=== PATIENT | male | born 1950 | race Caucasian/White ===

== ENCOUNTER 2016-08-17 14:57 | Emergency (ER) | payer BC ==
[~2016-08-17 14:57] MED LIST: CENTTAB9 PO; CHOL50006 PO; LEVO125T3 PO; LORTA5 PO
[2016-08-17 15:05] VITALS: BP 150/89; PULSE 83; RESP 18; TEMP 98.6; O2SAT 93
[2016-08-17] MEDS ORDERED: SODIUM CHLORID 0.9% 500 ML INJ 500 ML IV ONE (15:15)
[2016-08-17] MEDS ORDERED: chlordiazePOXIDE 25 MG CAP PO ONE (15:15)
[2016-08-17] MEDS ORDERED: THIAMINE HCL 200 MG/2 ML VIAL IM ONE (15:15)
[2016-08-17] MEDS ORDERED: ONDANSETRON HCL 4 MG/2 ML VIAL IV PUSH ONE (15:15)
[2016-08-17] MEDS ORDERED: PYRIDOSTIGMINE BROMIDE 60 MG TAB PO ONE (15:30)
--- NOTE | 2016-08-17 15:38 | PD ---
HPI Chief Complaint: Laceration/Skin Injury Time Seen by Provider: 15:00 Travel History International Travel<30 days: No Contact w/Intl Traveler<30days: No Traveled to known affect area: No History of Present Illness HPI 65-year-old male brought in under [employer] act with acute intoxication and worrisome for not being able to care for himself at home. Patient is intoxicated on alcohol. Patient states recent diagnosis of myasthenia gravis, and he expresses to me that he is very upset that his daughter wall having to do with him. Patient is noted to have vomitus on his shirt. He denies no specific medical complaints other than a laceration to his left foot. He is unsure how this occurred. EMS reports that his house was in disarray, and they were concerned about his well-being. He has no known drug allergies. PFSH Past Medical History Arthritis: Yes (BILATER HIP SX) Anxiety: Yes Depression: No Heart Rhythm Problems: No Cancer: No Cardiovascular Problems: Yes High Cholesterol: No Chemotherapy: No Chest Pain: No Congestive Heart Failure: No COPD: No Cerebrovascular Accident: No Coronary Artery Disease: Yes Diabetes: No Diminished Hearing: No Endocrine: Yes (HYPOKALEMIA, HYPOMAGNESIUM) Gastrointestinal Disorders: No GERD: No Genitourinary: No Headaches: No Hiatal Hernia: No Hypertension: Yes Implanted Vascular Access Dvce: No Kidney Stones: No Musculoskeletal: Yes Neurologic: No Psychiatric: Yes (ETOH ABUSE) Reproductive: No Respiratory: No Integumentary: Yes (NECROTIZING FASCITIS) Immunizations Current: No Migraines: No Radiation Therapy: No Renal Failure: No Seizures: No Sickle Cell Disease: No Sleep Apnea: Yes Thyroid Disease: Yes (hypo) Ulcer: No Past Surgical History Abdominal Surgery: Yes (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) Arteriovenous Shunt: No Cardiac Surgery: No Cholecystectomy: Yes Ear Surgery: No Endocrine Surgery: No Eye Surgery: No Genitourinary Surgery: No Gynecologic Surgery: No Insulin Pump: No Joint Replacement: Yes (bilateral total hips, R HIP REPLACEMENT 2009 ) Neurologic Surgery: No Oral Surgery: No Thoracic Surgery: No Other Surgery: Yes (bariatric sx, NECROTIZING FASCITIS, MX SKIN GRAFTS) Social History Alcohol Use: Yes (1.5 x 1.75 liter bottles- BINGE DRINKER) Tobacco Use: No Substance Use: No (ALCOHOL ABUSE) Allergies-Medications (Allergen,Severity, Reaction): Coded Allergies: No Known Allergies (Unverified , 03/13/16) Reported Meds & Prescriptions Reported Meds & Active Scripts Active [place] 5-325 mg (Hydrocodone-Acetaminophen 5-325 mg) 1 Tab 1-2 Tab PO Q4H PRN Levothyroxine 125 mcg (Levothyroxine Sodium) 125 Mcg Tab 150 Mcg PO DAILY 30 Days Reported Vitamin D (Cholecalciferol) 5,000 Unit Tab 10,000 Unit PO WEEKLY Centrum (Multivitamins) Tab 1 Tab PO DAILY Review of Systems ROS Limitations: Intoxication Except as stated in HPI: all other systems reviewed are Neg General / Constitutional: No: Fever Eyes: No: Visual changes HENT: No: Headaches Cardiovascular: No: Chest Pain or Discomfort Respiratory: No: Shortness of Breath Gastrointestinal: No: Abdominal Pain Genitourinary: No: Dysuria Musculoskeletal: No: Pain Skin: Positive Lesions (laceration to the left foot.), No Rash Neurologic: No: Weakness Psychiatric: Positive: Depression, Substance Abuse Endocrine: No: Polydipsia Hematologic/Lymphatic: No: Easy Bruising Physical Exam Exam Limitations: Intoxication Narrative GENERAL: Patient appears intoxicated and visibly upset. SKIN: Warm and dry. Normal color. Normal turgor. Patient has 2 superficial lacerations to the left distal sole of foot with no active bleeding. These are clean and not amenable to ensure at this time. No signs of cellulitis is noted. HEAD: Atraumatic. Normocephalic. Normal color. Normal turgor. EYES: Pupils equal and round. No scleral icterus. No injection or drainage. ENT: No nasal bleeding or discharge. Mucous membranes pink and moist. Pharynx is clear. Airway is patent. NECK: Trachea midline. No JVD. Supple nontender. CARDIOVASCULAR: Regular rate and rhythm. RESPIRATORY: No accessory muscle use. Clear to auscultation. Breath sounds equal bilaterally. GASTROINTESTINAL: Abdomen soft, non-tender, nondistended. Hepatic and splenic margins not palpable. MUSCULOSKELETAL: Extremities without clubbing, cyanosis, or edema. No obvious deformities. NEUROLOGICAL: Awake and alert. No obvious cranial nerve deficits. Motor grossly within normal limits. Five out of 5 muscle strength in the arms and legs. Normal speech. PSYCHIATRIC: Mood is labile; insight and judgment normal. Data Data Last Documented VS Vital Signs Date Time Temp Pulse Resp B/P Pulse Ox O2 Delivery O2 Flow Rate FiO2 08/17/16 15:08 83 18 08/17/16 15:05 98.6 150/89 93 Orders Complete Blood Count With Diff (08/17/16 15:10) Comprehensive Metabolic Panel (08/17/16 15:10) Urinalysis - C+S If Indicated (08/17/16 15:10) Psych Screen (08/17/16 15:10) Drug Screen, Random Urine (08/17/16 15:10) Alcohol (Ethanol) (08/17/16 15:10) Thiamine Inj (Thiamine Inj) (08/17/16 15:15) Chlordiazepoxide (Librium) (08/17/16 15:15) Ondansetron Inj (Zofran Inj) (08/17/16 15:15) Sodium Chlorid 0.9% 500 Ml Inj (Ns 500 M (08/17/16 15:15) Pyridostigmine (Mestinon) (08/17/16 15:30) Clindamycin Inj (Cleocin Inj) (08/17/16 18:00) Labs Laboratory Tests Test 08/17/16 08/17/16 15:48 15:58 Urine Color LIGHT-YELLOW Urine Turbidity CLEAR Urine pH 5.0 Urine Specific [place] 1.005 Urine Protein NEG mg/dL Urine Glucose (UA) NEG mg/dL Urine Ketones NEG mg/dL Urine Occult Blood NEG Urine Nitrite NEG Urine Bilirubin NEG Urine Urobilinogen LESS THAN 2.0 MG/DL Urine Leukocyte Esterase NEG Urine WBC LESS THAN 1 /hpf Microscopic Urinalysis Comment CULT NOT INDICATED Urine Opiates Screen NEG Urine Barbiturates Screen NEG Urine Amphetamines Screen NEG Urine Benzodiazepines Screen NEG Urine Cocaine Screen NEG Urine Cannabinoids Screen NEG White Blood Count 6.4 TH/MM3 Red Blood Count 4.64 MIL/MM3 Hemoglobin 14.4 GM/DL Hematocrit 42.0 % Mean Corpuscular Volume 90.5 FL Mean Corpuscular Hemoglobin 30.9 PG Mean Corpuscular Hemoglobin 34.2 % Concent Red Cell Distribution Width 17.4 % Platelet Count 236 TH/MM3 Mean Platelet Volume 7.3 FL Neutrophils (%) (Auto) 56.3 % Lymphocytes (%) (Auto) 35.4 % Monocytes (%) (Auto) 5.6 % Eosinophils (%) (Auto) 2.0 % Basophils (%) (Auto) 0.7 % Neutrophils # (Auto) 3.6 TH/MM3 Lymphocytes # (Auto) 2.3 TH/MM3 Monocytes # (Auto) 0.4 TH/MM3 Eosinophils # (Auto) 0.1 TH/MM3 Basophils # (Auto) 0.0 TH/MM3 CBC Comment DIFF FINAL Differential Comment Sodium Level 141 MEQ/L Potassium Level 4.5 MEQ/L Chloride Level 107 MEQ/L Carbon Dioxide Level 22.9 MEQ/L Anion Gap 11 MEQ/L Blood Urea Nitrogen 15 MG/DL Creatinine 0.89 MG/DL Estimat Glomerular Filtration 86 ML/MIN Rate Random Glucose 99 MG/DL Calcium Level 8.5 MG/DL Total Bilirubin 0.6 MG/DL Aspartate Amino Transf 53 U/L (AST/SGOT) Alanine Aminotransferase 29 U/L (ALT/SGPT) Alkaline Phosphatase 85 U/L Total Protein 6.9 GM/DL Albumin 3.3 GM/DL Ethyl Alcohol Level 288 MG/DL [facility] Medical Decision Making Medical Screen Exam Complete: Yes Emergency Medical Condition: Yes Differential Diagnosis EtOH intoxication. Mood disorder. Depression. Laceration to the left foot. Narrative Course Patient is medically stable at time of exam. Labs ordered including CBC, CMP, urine drug screen, serum EtOH. Patient is given a normal saline bolus of 500 mL. Patient is given Librium 25 mg 1. Patient is given Mestinon 60 mg by mouth 1. Patient is given thiamine 100 mg IM 1 Psych screen is ordered for the patient. Patient is given clindamycin 600 mg IV. CBC is unremarkable. CMP is unremarkable. Urine drug screen is clear. Serum alcohol is 288. Urinalysis is within normal limits. Patient is medically cleared for psychiatric evaluation. Diagnosis Primary Impression: Alcohol abuse Additional Impression: Medical clearance for psychiatric admission Condition: Stable Hieu Reyes Aug 17, 2016 15:38
[2016-08-17 16:14] LABS: AUTOMATED NEUTROPHIL # 3.6 TH/MM3 (1.8-7.7); BASOPHIL % 0.7 % (0.0-2.0); EOSINOPHIL # 0.1 TH/MM3 (0-0.4); HEMO FLAGS DIFF FINAL; LYMPH % 35.4 % (9.0-44.0); LYMPHOCYTE # 2.3 TH/MM3 (1.0-4.8); MEAN CELL VOLUME 90.5 FL (80.0-100.0); MEAN CORPUSCULAR HEMOGLOBIN 30.9 PG (27.0-34.0); MEAN CORPUSCULAR HGB CONC 34.2 % (32.0-36.0); MONO % 5.6 % (0.0-8.0); NEUT % 56.3 % (16.0-70.0); PLATELET COUNT 236 TH/MM3 (150-450); RED BLOOD COUNT 4.64 MIL/MM3 (4.50-5.90); RED CELL DISTRIBUTION WIDTH 17.4 % (11.6-17.2); WHITE BLOOD COUNT 6.4 TH/MM3 (4.0-11.0)
[2016-08-17 16:21] LABS: BLOOD, URINE NEG (NEG); GLUCOSE,URINE NEG (NEG); KETONE, URINE NEG (NEG); NITRITE,URINE NEG (NEG); URINE COLOR LIGHT-YELLOW (YELLW/STRAW)
[2016-08-17 16:27] LABS: AMPHETAMINE, URINE NEG (NEG); BARBITURATES, URINE NEG (NEG); COCAINE, URINE NEG (NEG); COMMENT (UR) CULT NOT INDICATED; CULTURE IF INDICATED CULT NOT INDICATED
[2016-08-17 16:39] LABS: ANION GAP 11 MEQ/L (5-15)
[2016-08-17 16:47] LABS: ALKALINE PHOSPHATASE 85 U/L (45-117); ALT (GPT) 29 U/L (12-78); AST (GOT) 53 U/L (15-37); BICARBONATE 22.9 MEQ/L (21.0-32.0); BLOOD UREA NITROGEN 15 MG/DL (7-18); CHLORIDE 107 MEQ/L (98-107); GLOMERULAR FILTRATION RATE 86 ML/MIN (>89); POTASSIUM 4.5 MEQ/L (3.5-5.1); SODIUM (NA) 141 MEQ/L (136-145); TOTAL BILIRUBIN ADULT 0.6 MG/DL (0.2-1.0)
[2016-08-17] MEDS ORDERED: CLINDAMYCIN INJ 600 MG in SODIUM CHLORIDE 0.9% INJ 100 ML IV ONE (18:00)
[2016-08-17 22:54] VITALS: BP 131/68; PULSE 84; RESP 20; TEMP 98; O2SAT 97
[2016-08-17] MEDS ORDERED: THIA100T PO (23:02)
[2016-08-17] MEDS ORDERED: LEVO175T2 PO (23:02)
[2016-08-17] MEDS ORDERED: VITAINJ IM/SQ (23:07)
[2016-08-17] MEDS ORDERED: MEST60TA PO (23:10)
[2016-08-18 02:17] VITALS: BP 170/93; PULSE 101; RESP 19; O2SAT 95
[2016-08-18 06:11] VITALS: BP 170/85; PULSE 88; RESP 19; O2SAT 98
[2016-08-18] MEDS ORDERED: PRED10 PO (07:35)
[2016-08-18] MEDS ORDERED: PYRIDOSTIGMINE BROMIDE 60 MG TAB PO ONE (07:45)
[2016-08-18] MEDS ORDERED: predniSONE 10 MG TAB PO ONE (07:45)
== END 2016-08-18 10:06 | disposition home or self-care (01) ==
LOC: NEDAMB 14:57 → NEPJ 08-18 10:06
DX: F10.10 Alcohol abuse, uncomplicated (principal); G70.00 Myasthenia gravis without (acute) exacerbation; I25.10 Atherosclerotic heart disease of native coronary artery without angina pectoris; I10 Essential (primary) hypertension
CPT/HCPCS: 80053; 80307; 80320; 81001; 85025; 96372; 96374; 96375; 99284; J2405; J3411; J7040; J7512

== ENCOUNTER 2016-09-02 11:41 | Emergency (ER) | payer BC ==
[~2016-09-02] VITALS: Ht 177.8 cm; Wt 106.8 kg
[2016-09-02 11:41] VITALS: BP 131/80; PULSE 80; PULSE 83; RESP 16; TEMP 97.4; O2SAT 81; O2SAT 97
[~2016-09-02 11:41] MED LIST changes: -LEVO125T3 PO; +LEVO175T2 PO; -LORTA5 PO; +MEST60TA PO; +PRED10 PO; +THIA100T PO; +VITAINJ IM/SQ
--- NOTE | 2016-09-02 11:57 | PD ---
HPI . Alcohol abuse Chief Complaint: Alcohol/Drug Intoxication Time Seen by Provider: 11:46 Travel History International Travel<30 days: No Contact w/Intl Traveler<30days: No Traveled to known affect area: No History of Present Illness HPI Patient presents to us via [facility] being found on the floor of his home. He had reportedly been passed out on the floor for about 7 hours. He states that he called a friend who called EMS who brought him here. He lives alone. He drinks daily. His only complaint is low back pain from lying on the floor for 7 hours. PFSH Past Medical History Arthritis: Yes (BILATER HIP SX) Anxiety: Yes Depression: No Heart Rhythm Problems: No Cancer: No Cardiovascular Problems: Yes High Cholesterol: No Chemotherapy: No Chest Pain: No Congestive Heart Failure: No COPD: No Cerebrovascular Accident: No Coronary Artery Disease: Yes Diabetes: No Diminished Hearing: No Endocrine: Yes (HYPOKALEMIA, HYPOMAGNESIUM) Gastrointestinal Disorders: No GERD: No Genitourinary: No Headaches: No Hiatal Hernia: No Heparin Induced Thrombocytopen: No Hypertension: No Implanted Vascular Access Dvce: No Kidney Stones: No Musculoskeletal: Yes Neurologic: No Psychiatric: Yes (ETOH ABUSE) Reproductive: No Respiratory: No Integumentary: Yes (NECROTIZING FASCITIS) Immunizations Current: No Migraines: No Radiation Therapy: No Renal Failure: No Seizures: No Sickle Cell Disease: No Sleep Apnea: Yes Thyroid Disease: Yes (HYPO) Ulcer: No Past Surgical History Abdominal Surgery: Yes (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) Arteriovenous Shunt: No Cardiac Surgery: No Cholecystectomy: Yes Ear Surgery: No Endocrine Surgery: No Eye Surgery: No Genitourinary Surgery: No Gynecologic Surgery: No Insulin Pump: No Joint Replacement: Yes (RIGHT HIP REPLACEMENT, 2009 ) Neurologic Surgery: No Oral Surgery: No Thoracic Surgery: No Other Surgery: Yes (bariatric sx, NECROTIZING FASCITIS, MX SKIN GRAFTS) Social History Alcohol Use: Yes (1.5 x 1.75 liter bottles- BINGE DRINKER) Tobacco Use: No Substance Use: No (ALCOHOL ABUSE, 20+ YEARS) Allergies-Medications (Allergen,Severity, Reaction): Coded Allergies: No Known Allergies (Unverified , 09/02/16) Reported Meds & Prescriptions Reported Meds & Active Scripts Active Reported Mestinon (Pyridostigmine [place]) 60 Mg Tab 60 Mg PO Q4HR Prednisone 10 Mg Tab 10 Mg PO BID Vitaject Inj (B Complex W/ C Inj) 1 Inj Inj 1 Ml IM/SQ MONTHLY Thiamine (Thiamine HCl) 100 Mg Tab 100 Mg PO DAILY Levothyroxine (Levothyroxine Sodium) 175 Mcg Tab 175 Mcg PO DAILY Review of Systems Except as stated in HPI: all other systems reviewed are Neg Musculoskeletal: Positive: Pain (low back pain) Psychiatric: Positive: Substance Abuse Physical Exam Narrative GENERAL: Disheveled-appearing man who is otherwise in no acute distress. He is lucid. SKIN: Warm and dry. HEAD: Atraumatic. Normocephalic. EYES: Pupils equal and round. Extraocular movements are intact. ENT: No nasal bleeding or discharge. Mucous membranes pink and moist. NECK: Trachea midline. Neck is supple. CARDIOVASCULAR: Regular rate and rhythm. Heart sounds are normal. RESPIRATORY: No accessory muscle use. Lungs are clear with full air movement throughout. GASTROINTESTINAL: Abdomen soft, non-tender, nondistended. MUSCULOSKELETAL: No obvious deformities. No edema. NEUROLOGICAL: Awake and alert. No obvious cranial nerve deficits. Motor grossly within normal limits. Normal speech. PSYCHIATRIC: Appropriate mood and affect; insight and judgment normal. Data Data Last Documented VS Vital Signs Date Time Temp Pulse Resp B/P Pulse Ox O2 Delivery O2 Flow Rate FiO2 09/02/16 11:41 74 16 97 Room Air 09/02/16 11:41 131/80 09/02/16 11:41 97.4 Orders Electrocardiogram (09/02/16 ) Complete Blood Count With Diff (09/02/16 11:51) Comprehensive Metabolic Panel (09/02/16 11:51) Thyroid Stimulating Hormone (09/02/16 11:51) Urinalysis - C+S If Indicated (09/02/16 11:51) Psych Screen (09/02/16 11:51) Lorazepam Inj (Ativan Inj) (09/02/16 12:00) Drug Screen, Random Urine (09/02/16 11:51) Alcohol (Ethanol) (09/02/16 11:51) Sodium Chlor 0.9% 1000 Ml Inj (Ns 1000 M (09/02/16 12:00) Creatine Kinase (Cpk) (09/02/16 11:51) Labs Laboratory Tests Test 09/02/16 09/02/16 12:05 12:37 White Blood Count 8.4 TH/MM3 Red Blood Count 4.67 MIL/MM3 Hemoglobin 14.3 GM/DL Hematocrit 42.2 % Mean Corpuscular Volume 90.3 FL Mean Corpuscular Hemoglobin 30.5 PG Mean Corpuscular Hemoglobin 33.8 % Concent Red Cell Distribution Width 16.1 % Platelet Count 186 TH/MM3 Mean Platelet Volume 7.4 FL Neutrophils (%) (Auto) 88.3 % Lymphocytes (%) (Auto) 6.6 % Monocytes (%) (Auto) 5.0 % Eosinophils (%) (Auto) 0.0 % Basophils (%) (Auto) 0.1 % Neutrophils # (Auto) 7.4 TH/MM3 Lymphocytes # (Auto) 0.6 TH/MM3 Monocytes # (Auto) 0.4 TH/MM3 Eosinophils # (Auto) 0.0 TH/MM3 Basophils # (Auto) 0.0 TH/MM3 CBC Comment DIFF FINAL Differential Comment Sodium Level 138 MEQ/L Potassium Level 3.5 MEQ/L Chloride Level 106 MEQ/L Carbon Dioxide Level 17.5 MEQ/L Anion Gap 15 MEQ/L Blood Urea Nitrogen 26 MG/DL Creatinine 1.10 MG/DL Estimat Glomerular Filtration 68 ML/MIN Rate Random Glucose 147 MG/DL Calcium Level 7.9 MG/DL Total Bilirubin 2.0 MG/DL Aspartate Amino Transf 1496 U/L (AST/SGOT) Alanine Aminotransferase 275 U/L (ALT/SGPT) Alkaline Phosphatase 126 U/L Total Creatine Kinase 162 U/L Total Protein 6.7 GM/DL Albumin 3.5 GM/DL Thyroid Stimulating Hormone 4.140 uIU/ML 3rd Gen Ethyl Alcohol Level 327 MG/DL Urine Color YELLOW Urine Turbidity CLEAR Urine pH 6.0 Urine Specific [place] 1.020 Urine Protein 30 mg/dL Urine Glucose (UA) NEG mg/dL Urine Ketones TRACE mg/dL Urine Occult Blood MOD Urine Nitrite NEG Urine Bilirubin NEG Urine Urobilinogen LESS THAN 2.0 MG/DL Urine Leukocyte Esterase NEG Urine RBC LESS THAN 1 /hpf Urine WBC LESS THAN 1 /hpf Urine Mucus FEW /lpf Microscopic Urinalysis Comment CULT NOT INDICATED Urine Opiates Screen NEG Urine Barbiturates Screen NEG Urine Amphetamines Screen NEG Urine Benzodiazepines Screen NEG Urine Cocaine Screen NEG Urine Cannabinoids Screen NEG MDM Medical Decision Making Medical Screen Exam Complete: Yes Emergency Medical Condition: Yes Interpretation(s) EKG shows a sinus rhythm. There is a lot of artifact. This is unchanged from previous. There is no ischemic change. Differential Diagnosis Differential diagnosis includes but is not limited to polysubstance abuse, suicidal ideation, manipulative behavior, rhabdomyolysis Narrative Course Patient presents for evaluation of alcohol abuse and being passed out on the floor for 7 hours. I have ordered some IV fluids pending his workup. I have ordered the usual psych clearance exam and have added a CK for rhabdomyolysis. CBC & BMP Diagram 09/02/16 12:05 LFTs were markedly elevated. His CK is normal. TSH is elevated at 4.14 with the upper level of normal being 3.74. Diagnosis Primary Impression: Transaminitis Additional Impression: Chronic alcohol abuse Condition: Stable Jasmyn Gutierrez MD Sep 02, 2016 11:57
[2016-09-02] MEDS ORDERED: LORazepam 2 MG/ML VIAL IV PRN (12:00)
[2016-09-02] MEDS ORDERED: SODIUM CHLOR 0.9% 1000 ML INJ 1,000 ML IV ONE (12:00)
[2016-09-02] MEDS ORDERED: MEST60TA PO (12:03)
[2016-09-02 12:45] LABS: AUTOMATED NEUTROPHIL # 7.4 TH/MM3 (1.8-7.7); BASOPHIL % 0.1 % (0.0-2.0); HEMATOCRIT 42.2 % (39.0-51.0); HEMO FLAGS DIFF FINAL; LYMPH % 6.6 % (9.0-44.0); LYMPHOCYTE # 0.6 TH/MM3 (1.0-4.8); MEAN CELL VOLUME 90.3 FL (80.0-100.0); MEAN CORPUSCULAR HEMOGLOBIN 30.5 PG (27.0-34.0); MEAN CORPUSCULAR HGB CONC 33.8 % (32.0-36.0); NEUT % 88.3 % (16.0-70.0); PLATELET COUNT 186 TH/MM3 (150-450); RED BLOOD COUNT 4.67 MIL/MM3 (4.50-5.90); RED CELL DISTRIBUTION WIDTH 16.1 % (11.6-17.2); WHITE BLOOD COUNT 8.4 TH/MM3 (4.0-11.0)
[2016-09-02 12:57] LABS: BLOOD, URINE MOD (NEG); GLUCOSE,URINE NEG (NEG); KETONE, URINE TRACE mg/dL (NEG); MUCUS URINE FEW /lpf (OCC); NITRITE,URINE NEG (NEG); URINE COLOR YELLOW (YELLW/STRAW)
[2016-09-02 12:58] LABS: COMMENT (UR) CULT NOT INDICATED; CULTURE IF INDICATED CULT NOT INDICATED
[2016-09-02 13:02] LABS: AMPHETAMINE, URINE NEG (NEG); BARBITURATES, URINE NEG (NEG); COCAINE, URINE NEG (NEG)
[2016-09-02 13:08] LABS: ANION GAP 15 MEQ/L (5-15)
[2016-09-02 13:18] LABS: ALKALINE PHOSPHATASE 126 U/L (45-117); ALT (GPT) 275 U/L (12-78); AST (GOT) 1496 U/L (15-37); BICARBONATE 17.5 MEQ/L (21.0-32.0); BLOOD UREA NITROGEN 26 MG/DL (7-18); CHLORIDE 106 MEQ/L (98-107); CREATINE KINASE 162 U/L (39-308); GLOMERULAR FILTRATION RATE 68 ML/MIN (>89); SODIUM (NA) 138 MEQ/L (136-145)
[2016-09-02 13:21] LABS: POTASSIUM 3.5 MEQ/L (3.5-5.1)
[2016-09-02 14:00] VITALS: BP 115/57; PULSE 70; RESP 16; O2SAT 97
[2016-09-02 16:00] VITALS: BP 130/67; PULSE 66; RESP 16; O2SAT 96
[2016-09-02 18:00] VITALS: BP 150/70; PULSE 66; RESP 16; O2SAT 96
[2016-09-02 20:56] VITALS: BP 138/67
--- NOTE | 2016-09-03 14:26 | EKG ---
Date Performed: 09/02/2016 Time Performed: 11:57:12 PTAGE: 65 years EKG: Sinus rhythm NORMAL ECG Compared to prior tracing no significant change PREVIOUS TRACING : 03/13/2016 14.33 DOCTOR: Ash Rene Interpretating Date/Time 09/03/2016 14:25:12
== END 2016-09-02 21:25 | disposition home or self-care (01) ==
LOC: NEPA 11:41
DX: R74.0 Nonspecific elevation of levels of transaminase and lactic acid dehydrogenase [LDH] (principal); F10.229 Alcohol dependence with intoxication, unspecified; Y90.8 Blood alcohol level of 240 mg/100 ml or more
CPT/HCPCS: 80053; 80307; 81001; 82550; 84443; 85025; 93005; 96360; 96361; 99285; J7030; 80320